=== PATIENT | female | born 1995 | race Two or more races ===

== ENCOUNTER 2020-08-18 11:25 | Emergency (ER) | payer MEDICAID ==
[~2020-08-18] VITALS: Ht 177.8 cm; Wt 105.6 kg
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
[2020-08-18] MEDS ORDERED: ACETAMINOPHEN 500 MG TABLET ONE ×2 (12:14→12:17)
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
[2020-08-18] MEDS ORDERED: ACETAMINOPHEN 500 MG TABLET PO ONE (12:30)
[2020-08-18] MEDS ORDERED: ACETAMINOPHEN 325 MG TABLET PO ONE (12:30)
[2020-08-18 14:19] VITALS: BP 109/61
--- NOTE | 2020-08-18 14:28 | NUR ---
PT REEC'VD DISCHARGE INSTRUCTIONS AND EDUCATION. PT HAD NO FURTHER QUESTIONS. PT AMBULATED TO DC AREA, STEADY GAIT.
== END 2020-08-18 14:30 | disposition home or self-care (01) ==
LOC: ED 13:02
DX: S02.2XXA Fracture of nasal bones, initial encounter for closed fracture (principal); S02.85XA Fracture of orbit, unspecified, initial encounter for closed fracture; Y04.8XXA Assault by other bodily force, initial encounter; Y93.89 Activity, other specified; Y92.410 Unspecified street and highway as the place of occurrence of the external cause; Y99.8 Other external cause status
CPT/HCPCS: 99282